=== PATIENT | male | born 1985 | race Caucasian/White ===

== ENCOUNTER → 2019-02-04 | Outpatient (CLI) | payer OTHER | LOC: LAB 10:11 | DX: K12.1 Other forms of stomatitis (principal); R53.81 Other malaise; R53.83 Other fatigue ==

== ENCOUNTER → 2020-05-31 | Outpatient (CLI) | payer OTHER | LOC: RAD 10:03 | DX: S29.9XXA Unspecified injury of thorax, initial encounter (principal) ==

== ENCOUNTER 2021-06-13 17:24 | Emergency (ER) | payer OTHER ==
[2021-06-13 17:51] LABS: BASO # 0.03 K/mm3 (0.02-0.10); EOS # 0.07 K/mm3 (0.04-0.40); EOS % 0.9 % (0.0-4.0); HEMATOCRIT 43.3 % (42.0-52.0); HEMOGLOBIN 14.6 g/dL (13.5-18.0); LYMPH# 1.76 K/mm3 (1.50-4.00); MEAN CELL VOLUME 92 fl (78-100); MEAN CORPUSCULAR HEMOGLOBIN 31 pg (27-31); MEAN CORPUSCULAR HGB CONC 34 g/dL (33-37); MONO # 0.79 K/mm3 (0.20-0.80); NEU # 4.79 K/mm3 (1.40-6.50); PLATELET COUNT 208 K/mm3 (130-400); RED BLOOD COUNT 4.72 M/mm3 (4.20-5.60); RED CELL DISTRIBUTION WIDTH 11.7 % (11.5-14.5); WHITE BLOOD COUNT 7.5 K/mm3 (4.8-10.8)
[2021-06-13 18:02] LABS: ALBUMIN 4.1 g/dL (3.5-5.0)
[2021-06-13 18:04] LABS: CALCIUM 9.9 mg/dL (8.3-10.5)
[2021-06-13 18:05] LABS: TOTAL PROTEIN 7.4 g/dL (6.4-8.3)
[2021-06-13 18:07] LABS: TOTAL BILIRUBIN 0.4 mg/dL (0.2-1.2)
[2021-06-13 19:01] LABS: URINE WBC 0 /hpf (0-3)
[2021-06-13 19:15] LABS: URINE APPEARANCE CLEAR; URINE COLOR YELLOW
[2021-06-13 19:16] LABS: URINE BILIRUBIN NEGATIVE (NEGATIVE); URINE BLOOD NEGATIVE (NEGATIVE); URINE GLUCOSE NEGATIVE (NEGATIVE); URINE KETONE NEGATIVE (NEGATIVE); URINE LEUKOCYTE ESTERASE NEGATIVE (NEGATIVE); URINE NITRATE NEGATIVE (NEGATIVE); URINE PROTEIN(semi-quant) TRACE mg/dL (NEGATIVE); URINE UROBILINOGEN NORMAL (NORMAL)
[2021-06-13] MEDS ORDERED: CEPHALEXIN500 M1 PO (20:59)
[2021-06-13 21:15] VITALS: BP 144/105
[2021-06-13] MEDS ORDERED: PERCOCET 325 MG1 TA2 PO (21:16)
== END 2021-06-13 21:15 | disposition home or self-care (01) ==
LOC: ED 17:24
PROVIDERS: Nurse Practitioner
DX: R10.31 Right lower quadrant pain (principal); Z87.891 Personal history of nicotine dependence; Z20.822 Contact with and (suspected) exposure to COVID-19
CPT/HCPCS: J0696; J2405; J3010; J7030; Q9967

== ENCOUNTER → 2021-06-13 | Outpatient (CLI) | payer OTHER ==
[~2021-06-13] MED LIST: CEPHALEXIN500 M1 PO; PERCOCET 325 MG1 TA2 PO
== END ==
LOC: LAB 19:22
DX: R50.9 Fever, unspecified (principal)